=== PATIENT | male | born 1985 | race Caucasian/White ===

== ENCOUNTER 2017-11-16 12:46 | Inpatient (IN) | payer OTHER ==
[2017-11-16 16:29] VITALS: BMI 25.7
--- NOTE | 2017-11-16 18:10 | HP ---
COWS - Scale Resting Pulse: 1= [place] 81-100 Sweatin=Flushed/Facial Moisture Restless Observation: 1= Difficult to Sit Still Pupil Size: 1= Pupils >than Normal Bone or Joint Aches: 1= Mild Discomfort Runny Nose/ Eye Tearin= None GI Upset > 30mins: 0= None Tremor Observation: 2= Slight Tremor Visible Yawning Observation: 2= >3x During Session Anxiety or Irritability: 2=Irritable/Anxious Goose Flesh Skin: 3=Piloerection COWS Score: 15 Admission ROS S - HPI Chief Complaint: withdrawal symptoms Allergies/Adverse Reactions: Allergies Allergy/AdvReac Type Severity Reaction Status Date / Time No Known Allergies Allergy Verified 11/16/17 17:26 History of Present Illness: 32 yo male with hx of marijuana, nicotine, and heroin dependence is here seeking detox. Pmhx: depression denies any other significant health hx. Denies attending any other detox, denies any significant period of sobriety. Denies suicidal / homicidal ideation or suicide attempts. Exam Limitations: No Limitations - Ebola screening Have you traveled outside of the country in the last 21 days: No Have you had contact with anyone from an Ebola affected area: No Have you been sick,other than usual withdrawal symptoms: No Do you have a fever: No - Review of Systems Constitutional: Chills, Weakness EENT: reports: No Symptoms Reported Respiratory: reports: No Symptoms reported Cardiac: reports: No Symptoms Reported GI: reports: No Symptoms Reported, Indigestion : reports: No Symptoms Reported Musculoskeletal: reports: No Symptoms Reported Integumentary: reports: No Symptoms Reported Neuro: reports: No Symptoms reported, Headache Endocrine: reports: Excessive Sweating Hematology: reports: No Symptoms Reported Psychiatric: reports: Orientated x3, Depressed Patient History - Patient Medical History Hx Anemia: No Hx Asthma: No Hx Chronic Obstructive Pulmonary Disease (COPD): No Hx Cancer: No Hx Cardiac Disorders: No Hx Congestive Heart Failure: No Hx Hypertension: No Hx Hypercholesterolemia: No Hx Pacemaker: No HX Cerebrovascular Accident: No Hx Seizures: No Hx Dementia: No Hx Diabetes: No Hx Gastrointestinal Disorders: No Hx Liver Disease: No Hx Genitourinary Disorders: No Hx Sexually Transmitted Disorders: No Hx Renal Disease (ESRD): No Hx Thyroid Disease: No Hx Human Immunodeficiency Virus (HIV): No (last tested 2 months ago ) Hx Hepatitis C: No Hx Depression: No Hx Suicide Attempt: No Hx Bipolar Disorder: No Hx Schizophrenia: No - Patient Surgical History Past Surgical History: No Hx Neurologic Surgery: No Hx Cataract Extraction: No Hx Cardiac Surgery: No Hx Lung Surgery: No Hx Breast Surgery: No Hx Breast Biopsy: No Hx Abdominal Surgery: No Hx Appendectomy: No Hx Cholecystectomy: No Hx Genitourinary Surgery: No Hx Section: No Hx Orthopedic Surgery: No Anesthesia Reaction: No - PPD History Previous Implant?: No Documented Results: Negative w/o proof Implanted On Prior R Admission?: No PPD to be Administered?: Yes - Reproductive History Patient is a Female of Child Bearing Age (11 -55 yrs old): No - Smoking Cessation Smoking history: Current every day smoker Have you smoked in the past 12 months: No Aproximately how many cigarettes per day: 7 Hx Chewing Tobacco Use: No Initiated information on smoking cessation: Yes 'Breaking Loose' booklet given: 11/16/17 - Substance & Tx. History Hx Alcohol Use: No Hx Substance Use: Yes Substance Use Type: Heroin, Marijuana, Opiates Hx Substance Use Treatment: No - Substances Abused Heroin Route: Inhalation Frequency: 3-6 times per week Amount used: 2 bags Age of first use: 29 Date of Last Use: 11/15/17 Family Disease History - Family Disease History Family Disease History: Other: Father (alive and well), Mother (alive and well ) Admission Physical Exam BHS - Vital Signs Vital Signs: Vital Signs - 24 hr 11/16/17 16:17 Temperature 97 F L Pulse Rate 89 Respiratory 18 Rate Blood Pressure 122/82 - Physical General Appearance: Yes: Disheveled, Mild Distress, Irritable, Anxious HEENTM: Yes: Hearing grossly Normal, Normal ENT Inspection, Normocephalic, Normal Voice, Pharynx Normal, Tm's normal Respiratory: Yes: Chest Non-Tender, Normal Breath Sounds, No Respiratory Distress, No Accessory Muscle Use Neck: Yes: No masses,lesions,Nodules, Trachea in good position Breast: Yes: Breast Exam Deferred Cardiology: Yes: Regular Rhythm, Regular Rate, S1, S2 Abdominal: Yes: Normal Bowel Sounds, Non Tender, Flat, Soft Genitourinary: Yes: Within Normal Limits Back: Yes: Normal Inspection Musculoskeletal: Yes: full range of Motion, Gait Steady, Pelvis Stable Extremities: Yes: Normal Capillary Refill, Normal Inspection, Normal Range of Motion, Non-Tender 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: 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 NML intact, Fully Oriented, Alert, Motor Strength 5/5, Normal Response, Depressed Affect Integumentary: Yes: Normal Color Lymphatic: Yes: Within Normal Limits - Diagnostic (1) Opioid dependence with withdrawal Current Visit: Yes Status: Acute (2) Marijuana dependence Current Visit: Yes Status: Chronic (3) Depressed affect Current Visit: Yes Status: Acute (4) Dehydration Current Visit: Yes Status: Acute (5) Headache Current Visit: Yes Status: Acute Qualifiers: Headache type: unspecified Headache chronicity pattern: acute headache (6) Nicotine dependence Current Visit: Yes Status: Chronic Qualifiers: Nicotine product type: cigarettes Cleared for Admission [facility] - Detox or Rehab [facility] Level of Care: Medically Managed Detox Regimen/Protocol: Methadone [facility] Breath Alcohol Content Breath Alcohol Content: 0 Urine Drug Screen - Results Drug Screen Negative: No Urine Drug Screen Results: THC-Marijuana, OPI-Opiates, MET-Methamphetamine, MTD- Methadone
[2017-11-16] MEDS ORDERED: NICOTINE POLACRILEX 2 MG GUM BC PRN (18:18)
[2017-11-16] MEDS ORDERED: MAGNESIUM CITRATE 300 ML BOTTLE PO PRN (18:18)
[2017-11-16] MEDS ORDERED: MAGNESIUM HYDROX 2400MG/30ML ORAL SUSPENSION 30 ML CUP PO PRN (18:18)
[2017-11-16] MEDS ORDERED: P-EPHED 60MG/TRIPROLIDI 2.5MG TABLET PO PRN (18:18)
[2017-11-16] MEDS ORDERED: ACETAMINOPHEN 325 MG TABLET (FP) PO PRN (18:18)
[2017-11-16] MEDS ORDERED: LOPERAMIDE HCL 2 MG CAPSULE PO PRN (18:18)
[2017-11-16] MEDS ORDERED: guaiFENesin/D-METHORPHAN HB 10 ML UNIT-DOSE CUPS PO PRN (18:18)
[2017-11-16] MEDS ORDERED: MENTHOL/PHENOL 1 EACH UD MM PRN (18:18)
[2017-11-16] MEDS ORDERED: IBUPROFEN 400 MG TABLET (FP) PO PRN (18:18)
[2017-11-16] MEDS ORDERED: METHADONE HCL 10 MG TABLET (FOR DETOX USE ONLY) PO ONE ×2 (18:45→23:00)
[2017-11-16] MEDS: diazePAM 5 MG TABLET PO PRN (19:12)
[2017-11-16] MEDS: hydrOXYzine PAMOATE 50 MG CAPSULE (FP) PO PRN (22:14)
[2017-11-16] MEDS: THIAMINE HCL 100 MG TABLET (FP) PO SCH (22:14)
[2017-11-17 00:04] LABS: URINE APPEARANCE CLEAR; URINE BILIRUBIN NEGATIVE (NEGATIVE); URINE BLOOD NEGATIVE (NEGATIVE); URINE COLOR YELLOW; URINE GLUCOSE (UA) NEGATIVE (NEGATIVE); URINE KETONE NEGATIVE (NEGATIVE); URINE LEUK ESTERASE NEGATIVE (NEGATIVE); URINE NITRITE NEGATIVE (NEGATIVE); URINE PROTEIN NEGATIVE (NEGATIVE); URINE UROBILINOGEN NEGATIVE mg/dL (0.2-1.0)
--- NOTE | 2017-11-17 07:38 | CONSULT ---
[facility] Psychiatric Consult - Data Date of interview: 11/17/17 Admission source: [facility] Identifying data: This is 32 years old male with hs tory of psychiatric hospitalization, history of marijuana, nicotine, and heroin dependence, is here seeking for detox. Substance Abuse History: - Smoking Cessation. Smoking history: Current every day smoker. Have you smoked in the past 12 months: No. Aproximately how many cigarettes per day: 7. Hx Chewing Tobacco Use: No. Initiated information on smoking cessation: Yes. 'Breaking Loose' booklet given: 11/16/17. - Substance & Tx. History. Hx Alcohol Use: No. Hx Substance Use: Yes. Substance Use Type : Heroin, Marijuana, Opiates. Hx Substance Use Treatment: No. - Substances Abused. Heroin. Route: Inhalation. Frequency: 3-6 times per week. Amount used: 2 bags. Age of first use: 29. Date of Last Use: 11/15/17 Medical History: patient denies any significant health history. Psychiatric History: Patient reports history of anixiety, reports unclear psychiatric admission on 2-3 years ago being under influence, Denies attending any other detox, denies any significant period of sobriety. Denies suicidal / homicidal ideation or suicide attempts history. Physical/Sexual Abuse/Trauma History: Denies Additional Comment: Observation. Detox Unit Care Protocol Mental Status Exam - Mental Status Exam Alert and Oriented to: Person Cognitive Function: Fair Patient Appearance: Unkempt Mood: Nervous, Anxious Affect: Labile Patient Behavior: Guarded, Agitated Speech Pattern: Appropriate Voice Loudness: Mildly Loud Thought Process: Circumstantial Thought Disorder: Being Controlled Hallucinations: Denies Suicidal Ideation: Denies Homicidal Ideation: Denies Insight/Judgement: Fair Sleep: Difficulty falling asleep Appetite: Weight loss Muscle strength/Tone: Normal Gait/Station: Normal Additional Comments: Observation. Detox Unit Care Protocol Psychiatric Findings - Problem List ([place] 1, 2,3) (1) Drug-induced mood disorder Current Visit: Yes Status: Acute (2) Opioid dependence with withdrawal Current Visit: Yes Status: Acute (3) Marijuana dependence Current Visit: Yes Status: Chronic (4) Nicotine dependence Current Visit: Yes Status: Chronic Qualifiers: Nicotine product type: cigarettes - Initial Treatment Plan Initial Treatment Plan: Observation. Detox Unit Care Protocol
[2017-11-17] MEDS ORDERED: METHADONE HCL 10 MG TABLET (FOR DETOX USE ONLY) PO ONE (10:00)
[2017-11-17 10:03] LABS: HEMATOCRIT 45.6 % (35.4-49); HEMOGLOBIN 15.2 GM/dL (11.7-16.9); MCH 32.2 pg (25.7-33.7); MCHC 33.2 g/dl (32.0-35.9); MEAN PLT VOLUME 9.6 fl (7.5-11.1); PLATELET COUNT 236 K/MM3 (134-434); RBC 4.71 M/mm3 (4.00-5.60); RDW 13.4 % (11.9-15.9); WHITE BLOOD COUNT 6.6 K/mm3 (4.0-10.0)
[2017-11-17] MEDS: PRENATAL VITAMINS W/ FOLIC ACID TABLET (FP) PO SCH (10:12)
[2017-11-17] MEDS: diazePAM 5 MG TABLET PO PRN ×2 (10:12→22:37)
[2017-11-17] MEDS: NICOTINE 14 MG/24 HOURS TOPICAL PATCH TD SCH ×2 (10:13→10:16)
--- NOTE | 2017-11-17 10:14 | PN ---
BHS COWS - Scale Resting Pulse: 1= [place] 81-100 Sweatin=Flushed/Facial Moisture Restless Observation: 1= Difficult to Sit Still Pupil Size: 0= Normal to Room Light Bone or Joint Aches: 1= Mild Discomfort Runny Nose/ Eye Tearin= Runny Nose/Eyes GI Upset > 30mins: 0= None Tremor Observation of Outstretched Hands: 2= Slight Tremor Visible Yawning Observation: 2= >3x During Session Anxiety or Irritability: 2=Irritable/Anxious Goose Flesh Skin: 0=Smooth Skin COWS Score: 13 BHS Progress Note (SOAP) Subjective: agitation sweats irritable body aches Objective: 11/17/17 10:14 Vital Signs Temperature 98.1 F 11/17/17 09:54 Pulse Rate 100 H 11/17/17 09:54 Respiratory Rate 20 11/17/17 09:54 Blood Pressure 124/80 11/17/17 09:54 O2 Sat by Pulse Oximetry (%) Laboratory Tests 11/16/17 11/17/17 23:50 06:00 WBC 6.6 RBC 4.71 Hgb 15.2 Hct 45.6 MCV 97.0 H MCH 32.2 MCHC 33.2 RDW 13.4 Plt Count 236 MPV 9.6 Urine Color Yellow Urine Appearance Clear Urine pH 5.0 Ur Specific [place] 1.029 Urine Protein Negative Urine Glucose (UA) Negative Urine Ketones Negative Urine Blood Negative Urine Nitrite Negative Urine Bilirubin Negative Urine Urobilinogen Negative Ur Leukocyte Esterase Negative labs pending aaox3 ambulating no acute distress Assessment: 11/17/17 10:14 withdrawal sx Plan: continue detox increase fluids labs pending
[2017-11-17 10:17] LABS: CHLORIDE 103 mmol/L (98-107); POTASSIUM 4.5 mmol/L (3.5-5.1); SODIUM 138 mmol/L (136-145)
[2017-11-17 10:31] LABS: ALBUMIN 3.9 g/dl (3.4-5.0); ALK PHOS 91 U/L (45-117); ANION GAP 6 (8-16); BILIRUBIN,TOTAL 0.6 mg/dL (0.2-1.0); BLOOD UREA NITROGEN 17 mg/dL (7-18); CALCIUM 8.3 mg/dL (8.5-10.1); CO2 29 mmol/L (21-32); CREATININE 1.2 mg/dL (0.7-1.3); GLUCOSE,RANDOM 95 mg/dL (74-106); SGOT/AST 16 U/L (15-37); SGPT/ALT 42 U/L (12-78); TOT PROT 6.8 g/dl (6.4-8.2)
[2017-11-17] MEDS ORDERED: PNEUMOCOCCAL 23 VACCINE 0.5 ML VIAL IM ONE (12:00)
[2017-11-17] MEDS ORDERED: FLU VACCINE QUAD 60 MCG/0.5 ML (MDV 17-18) IM ONE (12:00)
[2017-11-17] MEDS ORDERED: PNEUMOC 13-VAL CONJ-DIP CRM/PF 0.5 ML DISP.SYRIN IM ONE (12:00)
--- NOTE | 2017-11-17 16:13 | EKG ---
Test Reason : Blood Pressure : / mmHG Vent. Rate : 062 BPM Atrial Rate : 062 BPM P-R Int : 138 ms QRS Dur : 084 ms QT Int : 380 ms P-R-T Axes : 054 050 033 degrees QTc Int : 385 ms NORMAL SINUS RHYTHM NORMAL ECG NO PREVIOUS ECGS AVAILABLE Confirmed by JULIÁN RIDDLE MD ([id number]) on 11/17/2017 4:12:32 PM Referred By: Confirmed By:JULIÁN RIDDLE MD
[2017-11-17] MEDS: THIAMINE HCL 100 MG TABLET (FP) PO SCH (22:37)
[2017-11-18] MEDS ORDERED: METHADONE HCL 5 MG TABLET (FOR DETOX USE ONLY) PO ONE (10:00)
[2017-11-18] MEDS: diazePAM 5 MG TABLET PO PRN ×3 (10:04→22:17)
[2017-11-18] MEDS: PRENATAL VITAMINS W/ FOLIC ACID TABLET (FP) PO SCH (10:04)
[2017-11-18] MEDS: NICOTINE 14 MG/24 HOURS TOPICAL PATCH TD SCH (10:04)
--- NOTE | 2017-11-18 10:14 | PN ---
BHS COWS - Scale Resting Pulse: 0= [place] 80 or Below Sweatin=Flushed/Facial Moisture Restless Observation: 1= Difficult to Sit Still Pupil Size: 0= Normal to Room Light Bone or Joint Aches: 2= Severe Diffuse Aches Runny Nose/ Eye Tearin= Nasal Congestion GI Upset > 30mins: 0= None Tremor Observation of Outstretched Hands: 1= Tremor [place], Not Seen Yawning Observation: 2= >3x During Session Anxiety or Irritability: 1=Feels Anxious/Irritable Goose Flesh Skin: 0=Smooth Skin COWS Score: 10 BHS Progress Note (SOAP) Subjective: feeling better sweats irritable Objective: 11/18/17 10:16 Vital Signs Temperature 97.9 F 11/18/17 06:55 Pulse Rate 64 11/18/17 06:55 Respiratory Rate 18 11/18/17 06:55 Blood Pressure 111/71 11/18/17 06:55 O2 Sat by Pulse Oximetry (%) Laboratory Tests 11/16/17 11/16/17 11/17/17 06:00 23:50 06:00 WBC RBC Hgb Hct MCV MCH MCHC RDW Plt Count MPV Sodium Potassium Chloride Carbon Dioxide Anion Gap BUN Creatinine Creat Clearance w eGFR Random Glucose Calcium Total Bilirubin AST ALT Alkaline Phosphatase Total Protein Albumin Urine Color Yellow Urine Appearance Clear Urine pH 5.0 Ur Specific [place] 1.029 Urine Protein Negative Urine Glucose (UA) Negative Urine Ketones Negative Urine Blood Negative Urine Nitrite Negative Urine Bilirubin Negative Urine Urobilinogen Negative Ur Leukocyte Esterase Negative RPR Titer Hepatitis C Antibody <0.1 HIV 1&2 Antibody Screen Negative HIV P24 Antigen Negative 11/17/17 11/17/17 11/17/17 06:00 06:00 06:00 WBC 6.6 RBC 4.71 Hgb 15.2 Hct 45.6 MCV 97.0 H MCH 32.2 MCHC 33.2 RDW 13.4 Plt Count 236 MPV 9.6 Sodium 138 Potassium 4.5 Chloride 103 Carbon Dioxide 29 Anion Gap 6 L BUN 17 Creatinine 1.2 Creat Clearance w eGFR > 60 Random Glucose 95 Calcium 8.3 L Total Bilirubin 0.6 AST 16 ALT 42 Alkaline Phosphatase 91 Total Protein 6.8 Albumin 3.9 Urine Color Urine Appearance Urine pH Ur Specific [place] Urine Protein Urine Glucose (UA) Urine Ketones Urine Blood Urine Nitrite Urine Bilirubin Urine Urobilinogen Ur Leukocyte Esterase RPR Titer Nonreactive Hepatitis C Antibody HIV 1&2 Antibody Screen HIV P24 Antigen aaox3 ambulating no acute distress Assessment: 11/18/17 10:16 withdrawal sx Plan: continue detox increase fluids
[2017-11-18] MEDS: hydrOXYzine PAMOATE 50 MG CAPSULE (FP) PO PRN (22:17)
[2017-11-18] MEDS: THIAMINE HCL 100 MG TABLET (FP) PO SCH (22:17)
[2017-11-19] MEDS ORDERED: METHADONE HCL 5 MG TABLET (FOR DETOX USE ONLY) PO ONE (10:00)
[2017-11-19] MEDS: PRENATAL VITAMINS W/ FOLIC ACID TABLET (FP) PO SCH (10:17)
[2017-11-19] MEDS: NICOTINE 14 MG/24 HOURS TOPICAL PATCH TD SCH (10:18)
[2017-11-19] MEDS: diazePAM 5 MG TABLET PO PRN ×2 (10:18→17:32)
[2017-11-19] MEDS: MAG HYDROX/AL HYDROX/SIMETH 30 ML UNIT-DOSE CUP PO PRN ×2 (14:42→22:28)
--- NOTE | 2017-11-19 21:11 | PN ---
BHS Progress Note (SOAP) Subjective: sleep less shakes sweats Objective: 11/19/17 21:10 A & O x 3 Vital Signs Temperature 97.3 F L 11/19/17 18:15 Pulse Rate 74 11/19/17 18:15 Respiratory Rate 18 11/19/17 18:15 Blood Pressure 120/74 11/19/17 18:15 O2 Sat by Pulse Oximetry (%) Assessment: 11/19/17 21:10 withdrawal sx Plan: continue detox
[2017-11-19] MEDS: THIAMINE HCL 100 MG TABLET (FP) PO SCH (22:20)
[2017-11-19] MEDS: hydrOXYzine PAMOATE 50 MG CAPSULE (FP) PO PRN (22:20)
[2017-11-20] MEDS ORDERED: METHADONE HCL 10 MG TABLET (FOR DETOX USE ONLY) PO ONE (10:00)
[2017-11-20] MEDS: PRENATAL VITAMINS W/ FOLIC ACID TABLET (FP) PO SCH (10:06)
[2017-11-20] MEDS: NICOTINE 14 MG/24 HOURS TOPICAL PATCH TD SCH (10:07)
[2017-11-20] MEDS: MAG HYDROX/AL HYDROX/SIMETH 30 ML UNIT-DOSE CUP PO PRN (10:07)
--- NOTE | 2017-11-20 14:20 | PN ---
S Progress Note (SOAP) Subjective: alert oriented x 3 tolerate food and fluid well Objective: 11/20/17 14:18 Vital Signs Temperature 96.4 F L 11/20/17 14:16 Pulse Rate 93 H 11/20/17 14:16 Respiratory Rate 18 11/20/17 14:16 Blood Pressure 129/70 11/20/17 14:16 O2 Sat by Pulse Oximetry (%) Laboratory Last Values WBC 6.6 K/mm3 (4.0-10.0) 11/17/17 06:00 RBC 4.71 M/mm3 (4.00-5.60) 11/17/17 06:00 Hgb 15.2 GM/dL (11.7-16.9) 11/17/17 06:00 Hct 45.6 % (35.4-49) 11/17/17 06:00 MCV 97.0 fl (80-96) H 11/17/17 06:00 MCH 32.2 pg (25.7-33.7) 11/17/17 06:00 MCHC 33.2 g/dl (32.0-35.9) 11/17/17 06:00 RDW 13.4 % (11.9-15.9) 11/17/17 06:00 Plt Count 236 K/MM3 (134-434) 11/17/17 06:00 MPV 9.6 fl (7.5-11.1) 11/17/17 06:00 Sodium 138 mmol/L (136-145) 11/17/17 06:00 Potassium 4.5 mmol/L (3.5-5.1) 11/17/17 06:00 Chloride 103 mmol/L (98-107) 11/17/17 06:00 Carbon Dioxide 29 mmol/L (21-32) 11/17/17 06:00 Anion Gap 6 (8-16) L 11/17/17 06:00 BUN 17 mg/dL (7-18) 11/17/17 06:00 Creatinine 1.2 mg/dL (0.7-1.3) 11/17/17 06:00 Creat Clearance w eGFR > 60 (>60) 11/17/17 06:00 Random Glucose 95 mg/dL (74-106) 11/17/17 06:00 Calcium 8.3 mg/dL (8.5-10.1) L 11/17/17 06:00 Total Bilirubin 0.6 mg/dL (0.2-1.0) 11/17/17 06:00 AST 16 U/L (15-37) 11/17/17 06:00 ALT 42 U/L (12-78) 11/17/17 06:00 Alkaline Phosphatase 91 U/L (45-117) 11/17/17 06:00 Total Protein 6.8 g/dl (6.4-8.2) 11/17/17 06:00 Albumin 3.9 g/dl (3.4-5.0) 11/17/17 06:00 Urine Color Yellow 11/16/17 23:50 Urine Appearance Clear 11/16/17 23:50 Urine pH 5.0 (5.0-8.0) 11/16/17 23:50 Ur Specific [place] 1.029 (1.001-1.035) 11/16/17 23:50 Urine Protein Negative (NEGATIVE) 11/16/17 23:50 Urine Glucose (UA) Negative (NEGATIVE) 11/16/17 23:50 Urine Ketones Negative (NEGATIVE) 11/16/17 23:50 Urine Blood Negative (NEGATIVE) 11/16/17 23:50 Urine Nitrite Negative (NEGATIVE) 11/16/17 23:50 Urine Bilirubin Negative (NEGATIVE) 11/16/17 23:50 Urine Urobilinogen Negative mg/dL (0.2-1.0) 11/16/17 23:50 Ur Leukocyte Esterase Negative (NEGATIVE) 11/16/17 23:50 RPR Titer Nonreactive (NONREACTIVE) 11/17/17 06:00 Hepatitis C Antibody <0.1 s/co ratio (0.0-0.9) 11/16/17 06:00 HIV 1&2 Antibody Screen Negative 11/17/17 06:00 HIV P24 Antigen Negative 11/17/17 06:00 lab noted Assessment: 11/20/17 14:18 mild withdrawal sx Plan: medically supervised detox
[2017-11-20] MEDS: THIAMINE HCL 100 MG TABLET (FP) PO SCH (22:05)
[2017-11-20] MEDS: hydrOXYzine PAMOATE 50 MG CAPSULE (FP) PO PRN (22:06)
[2017-11-21] MEDS ORDERED: METHADONE HCL 5 MG TABLET (FOR DETOX USE ONLY) PO ONE (06:00)
[2017-11-21 07:17] VITALS: BP 107/75; PULSE 69; TEMP 96.4
--- NOTE | 2017-11-21 08:52 | DS ---
[facility] Detox Discharge Summary Admission Date: 11/16/17 Discharge Date: 11/21/17 - History Present History: Opioid Dependence - Physical Exam Results Vital Signs: Vital Signs Temperature 96.4 F L 11/21/17 06:17 Pulse Rate 69 11/21/17 06:17 Respiratory Rate 16 11/21/17 06:17 Blood Pressure 107/75 11/21/17 06:17 O2 Sat by Pulse Oximetry (%) Pertinent Admission Physical Exam Findings: withdrawal sx Laboratory Last Values WBC 6.6 K/mm3 (4.0-10.0) 11/17/17 06:00 RBC 4.71 M/mm3 (4.00-5.60) 11/17/17 06:00 Hgb 15.2 GM/dL (11.7-16.9) 11/17/17 06:00 Hct 45.6 % (35.4-49) 11/17/17 06:00 MCV 97.0 fl (80-96) H 11/17/17 06:00 MCH 32.2 pg (25.7-33.7) 11/17/17 06:00 MCHC 33.2 g/dl (32.0-35.9) 11/17/17 06:00 RDW 13.4 % (11.9-15.9) 11/17/17 06:00 Plt Count 236 K/MM3 (134-434) 11/17/17 06:00 MPV 9.6 fl (7.5-11.1) 11/17/17 06:00 Sodium 138 mmol/L (136-145) 11/17/17 06:00 Potassium 4.5 mmol/L (3.5-5.1) 11/17/17 06:00 Chloride 103 mmol/L (98-107) 11/17/17 06:00 Carbon Dioxide 29 mmol/L (21-32) 11/17/17 06:00 Anion Gap 6 (8-16) L 11/17/17 06:00 BUN 17 mg/dL (7-18) 11/17/17 06:00 Creatinine 1.2 mg/dL (0.7-1.3) 11/17/17 06:00 Creat Clearance w eGFR > 60 (>60) 11/17/17 06:00 Random Glucose 95 mg/dL (74-106) 11/17/17 06:00 Calcium 8.3 mg/dL (8.5-10.1) L 11/17/17 06:00 Total Bilirubin 0.6 mg/dL (0.2-1.0) 11/17/17 06:00 AST 16 U/L (15-37) 11/17/17 06:00 ALT 42 U/L (12-78) 11/17/17 06:00 Alkaline Phosphatase 91 U/L (45-117) 11/17/17 06:00 Total Protein 6.8 g/dl (6.4-8.2) 11/17/17 06:00 Albumin 3.9 g/dl (3.4-5.0) 11/17/17 06:00 Urine Color Yellow 11/16/17 23:50 Urine Appearance Clear 11/16/17 23:50 Urine pH 5.0 (5.0-8.0) 11/16/17 23:50 Ur Specific [place] 1.029 (1.001-1.035) 11/16/17 23:50 Urine Protein Negative (NEGATIVE) 11/16/17 23:50 Urine Glucose (UA) Negative (NEGATIVE) 11/16/17 23:50 Urine Ketones Negative (NEGATIVE) 11/16/17 23:50 Urine Blood Negative (NEGATIVE) 11/16/17 23:50 Urine Nitrite Negative (NEGATIVE) 11/16/17 23:50 Urine Bilirubin Negative (NEGATIVE) 11/16/17 23:50 Urine Urobilinogen Negative mg/dL (0.2-1.0) 11/16/17 23:50 Ur Leukocyte Esterase Negative (NEGATIVE) 11/16/17 23:50 RPR Titer Nonreactive (NONREACTIVE) 11/17/17 06:00 Hepatitis C Antibody <0.1 s/co ratio (0.0-0.9) 11/16/17 06:00 HIV 1&2 Antibody Screen Negative 11/17/17 06:00 HIV P24 Antigen Negative 11/17/17 06:00 lab noted - Treatment Hospital Course: Detox Protocol Followed, Detoxed Safely, Responded well, Discharged Condition Good, Rehab Referral Accepted Patient has Accepted a Rehab Referral to: [facility] - Medication Discharge Medications: Ambulatory Orders NK [No Known Home Medication] 11/16/17 - Diagnosis (1) Anxiety with depression Current Visit: Yes Status: Suspected (2) Opioid dependence with withdrawal Current Visit: Yes Status: Acute - AMA Did Patient Leave Against Medical Advice: No
[2017-11-21] MEDS: NICOTINE 14 MG/24 HOURS TOPICAL PATCH TD SCH (09:46)
[2017-11-21] MEDS: PRENATAL VITAMINS W/ FOLIC ACID TABLET (FP) PO SCH (09:46)
== END 2017-11-21 09:51 | disposition home or self-care (01) | DRG 773 ==
LOC: YASAS 12:46 → Y6N 18:18
PROVIDERS: ADMIT Internal Medicine; ATTEND Internal Medicine
PROC: HZ2ZZZZ Detoxification Services for Substance Abuse Treatment (ICD-10-PCS; principal; 2017-11-16)
DX: F11.23 Opioid dependence with withdrawal (principal); F12.20 Cannabis dependence, uncomplicated; F17.210 Nicotine dependence, cigarettes, uncomplicated; F19.24 Other psychoactive substance dependence with psychoactive substance-induced mood disorder; F41.8 Other specified anxiety disorders; R51 Headache
CPT/HCPCS: 36415; 80053; 81003; 85027; 86593; 86803; 87389; 90688; 90732; 93005; 93010; G0008; G0009

== ENCOUNTER 2024-09-11 17:26 | Inpatient (IN) | payer OTHER ==
[2024-09-11 18:19] VITALS: BMI 23.6
[2024-09-11] MEDS ORDERED: DOCUSATE SODIUM 100 MG CAPSULE (FP) PO PRN (18:52)
[2024-09-11] MEDS ORDERED: LOPERAMIDE HCL 2 MG CAPSULE PO PRN (18:52)
[2024-09-11] MEDS ORDERED: MAGNESIUM HYDROX 2400MG/30ML ORAL SUSPENSION 30 ML CUP PO PRN (18:52)
[2024-09-11] MEDS ORDERED: guaiFENesin 600 MG TABLET.ER (FP) PO PRN (18:52)
[2024-09-11] MEDS ORDERED: MAG HYDROX/AL HYDROX/SIMETH 30 ML UNIT-DOSE CUP PO PRN (18:52)
[2024-09-11] MEDS ORDERED: IBUPROFEN 400 MG TABLET (FP) PO PRN (18:52)
[2024-09-11] MEDS ORDERED: BENZONATATE 200 MG CAPSULE PO PRN (18:52)
[2024-09-11] MEDS ORDERED: NICOTINE POLACRILEX 2 MG LOZENGE BC PRN (18:52)
[2024-09-11] MEDS ORDERED: NICOTINE POLACRILEX 2 MG GUM BUC PRN (18:52)
[2024-09-11] MEDS ORDERED: BENZOCAINE/MENTHOL (CHLORASEPTIC ) LOZENGE MM PRN (18:52)
[2024-09-11] MEDS ORDERED: POLYETHYLENE GLYCOL (HEALTHYLAX) 3350 17 GM PACKET PO PRN (18:52)
[2024-09-11] MEDS ORDERED: NALOXONE (NARCAN) HCL 4 MG/0.1 ML SPRAY NS PRN (18:52)
[2024-09-11] MEDS ORDERED: ACETAMINOPHEN 325 MG TABLET (FP) PO PRN (18:52)
[2024-09-11] MEDS ORDERED: BUPRENORPHINE/NALOXONE 4 MG/1 MG FILM PACKET ONE (21:24)
[2024-09-11] MEDS: BUPRENORPHINE/NALOXONE 8 MG/2 MG FILM PACKET SL SCH (21:40)
[2024-09-11] MEDS: THIAMINE 100 MG TABLET PO SCH (22:45)
[2024-09-11] MEDS: MELATONIN 5 MG TABLETS PO SCH (22:45)
[2024-09-12] MEDS: PRENATAL VITAMINS W/ FOLIC ACID TABLET (FP) PO SCH (10:06)
[2024-09-12 11:11] LABS: HEMOGLOBIN 14.2 GM/dL (11.7-16.9); MCH 31.1 pg (25.7-33.7); MCHC 33.1 g/dl (32.0-35.9); MEAN CELL VOLUME 93.9 fl (80-96); MEAN PLT VOLUME 9.6 fl (7.5-11.1); PLATELET COUNT 241 10^3/uL (134-434); RBC 4.58 M/mm3 (4.00-5.60); RDW 13.7 % (11.9-15.9)
[2024-09-12 12:04] LABS: ALBUMIN 3.8 g/dl (3.4-5.0)
[2024-09-12 12:05] LABS: CALCIUM 8.9 mg/dL (8.5-10.1)
[2024-09-12 12:06] LABS: BLOOD UREA NITROGEN 17.1 mg/dL (7-18)
[2024-09-12 12:09] LABS: CREATININE 0.8 mg/dL (0.55-1.3)
[2024-09-12 12:11] LABS: TOT PROT 6.5 g/dl (6.4-8.2)
[2024-09-12 12:12] LABS: BILIRUBIN,TOTAL 0.6 mg/dL (0.2-1)
[2024-09-12 14:10] LABS: HIV INTERPRETATION NEGATIVE (NEGATIVE)
[2024-09-12] MEDS: hydrOXYzine PAMOATE 25 MG CAPSULE (FP) PO PRN (14:14)
[2024-09-12] MEDS: IBUPROFEN 600 MG TABLET (FP) PO PRN (16:39)
[2024-09-13 11:04] LABS: URINE APPEARANCE CLEAR; URINE BILIRUBIN NEGATIVE (NEGATIVE); URINE COLOR YELLOW; URINE GLUCOSE (UA) NEGATIVE (NEGATIVE); URINE KETONE NEGATIVE (NEGATIVE); URINE LEUK ESTERASE NEGATIVE (NEGATIVE); URINE NITRITE NEGATIVE (NEGATIVE); URINE PROTEIN NEGATIVE (NEGATIVE); URINE UROBILINOGEN 0.2 mg/dL (0.2-1.0)
[2024-09-14 17:58] VITALS: BP 117/75; PULSE 96; RESP 15; TEMP 98.6
[2024-09-14] MEDS: NALOXONE (NYS OPIOID OVERDOSE PROGRAM) 4 MG/0.1 ML SPRAY NS SCH (20:56)
[2024-09-14] MEDS ORDERED: busPIRone HCL 10 MG TABLET (FP) PO SCH (22:00)
[2024-09-14] MEDS ORDERED: QUEtiapine FUMARATE 50 MG TABLET PO SCH (22:00)
[2024-09-15] MEDS ORDERED: SERTRALINE HCL 50 MG TABLET (FP) PO SCH (10:00)
== END 2024-09-14 18:31 | disposition left against medical advice (07) | DRG 770 ==
LOC: YASAS 17:26 → Y3NR 21:15 → Y3W 09-12 13:28
PROVIDERS: ADMIT Psychiatry & Neurology Pain Medicine; ATTEND Psychiatry & Neurology Pain Medicine
PROC: HZ42ZZZ Group Counseling for Substance Abuse Treatment, Cognitive-Behavioral (ICD-10-PCS; principal; 2024-09-11)
DX: F11.20 Opioid dependence, uncomplicated (principal); F17.210 Nicotine dependence, cigarettes, uncomplicated; F19.24 Other psychoactive substance dependence with psychoactive substance-induced mood disorder; F32.A Depression, unspecified; Z59.00 Homelessness unspecified
CPT/HCPCS: 36415; 80053; 81003; 85027; 86780; 87389; 93005; 93010

== ENCOUNTER 2024-10-26 11:37 | Inpatient (IN) | payer OTHER ==
[2024-10-26 11:55] VITALS: BMI 22.1
[2024-10-26] MEDS ORDERED: cloNIDine HCL 0.1 MG TABLET PO PRN (12:28)
[2024-10-26] MEDS ORDERED: BENZOCAINE/MENTHOL (CHLORASEPTIC ) LOZENGE MM PRN (12:32)
[2024-10-26] MEDS ORDERED: POLYETHYLENE GLYCOL (HEALTHYLAX) 3350 17 GM PACKET PO PRN (12:32)
[2024-10-26] MEDS ORDERED: guaiFENesin 600 MG TABLET.ER (FP) PO PRN (12:32)
[2024-10-26] MEDS ORDERED: BISMUTH SUBSALICYLATE 262 MG/15 ML BTL PO PRN (12:32)
[2024-10-26] MEDS ORDERED: LOPERAMIDE HCL 2 MG CAPSULE PO PRN (12:32)
[2024-10-26] MEDS ORDERED: NALOXONE (NARCAN) HCL 4 MG/0.1 ML SPRAY NS PRN (12:32)
[2024-10-26] MEDS ORDERED: ONDANSETRON *ODT* 4 MG TABLET SL PRN (12:32)
[2024-10-26] MEDS ORDERED: NICOTINE POLACRILEX 2 MG GUM BUC PRN (12:32)
[2024-10-26] MEDS ORDERED: NICOTINE POLACRILEX 2 MG LOZENGE BC PRN (12:32)
[2024-10-26] MEDS ORDERED: ACETAMINOPHEN 325 MG TABLET (FP) PO PRN (12:32)
[2024-10-26] MEDS ORDERED: DICYCLOMINE HCL 10 MG CAPSULE PO PRN (12:32)
[2024-10-26] MEDS ORDERED: MAGNESIUM HYDROX 2400MG/30ML ORAL SUSPENSION 30 ML CUP PO PRN (12:32)
[2024-10-26] MEDS ORDERED: IBUPROFEN 400 MG TABLET (FP) PO PRN (12:32)
[2024-10-26] MEDS ORDERED: BENZONATATE 200 MG CAPSULE PO PRN (12:32)
[2024-10-26] MEDS ORDERED: IBUPROFEN 600 MG TABLET (FP) PO ONE (13:39)
[2024-10-26] MEDS: IBUPROFEN 600 MG TABLET (FP) PO PRN (13:44)
[2024-10-26] MEDS: methaDONE HCL 10 MG TABLET PO ONE (14:01)
[2024-10-26] MEDS: MELATONIN 5 MG TABLETS PO SCH (22:52)
[2024-10-26] MEDS: THIAMINE 100 MG TABLET PO SCH (22:52)
[2024-10-27 09:14] LABS: POTASSIUM 3.9 mmol/L (3.5-5.1)
[2024-10-27 09:17] LABS: ALBUMIN 3.7 g/dl (3.4-5.0); BLOOD UREA NITROGEN 15.4 mg/dL (7-18); CALCIUM 9.1 mg/dL (8.5-10.1)
[2024-10-27 09:20] LABS: CREATININE 0.8 mg/dL (0.55-1.3)
[2024-10-27 09:22] LABS: BILIRUBIN,TOTAL 0.4 mg/dL (0.2-1); TOT PROT 6.8 g/dl (6.4-8.2)
[2024-10-27 09:27] LABS: HEMATOCRIT 41.3 % (35.4-49); HEMOGLOBIN 14.2 GM/dL (11.7-16.9); MCH 32.2 pg (25.7-33.7); MCHC 34.5 g/dl (32.0-35.9); MEAN CELL VOLUME 93.4 fl (80-96); MEAN PLT VOLUME 9.4 fl (7.5-11.1); PLATELET COUNT 278 10^3/uL (134-434); RBC 4.42 M/mm3 (4.00-5.60); RDW 14.2 % (11.9-15.9)
[2024-10-27] MEDS ORDERED: methaDONE HCL 40 MG DISPERSABLE TABLET PO ONE (10:00)
[2024-10-27] MEDS: PRENATAL VITAMINS W/ FOLIC ACID TABLET (FP) PO SCH (10:26)
[2024-10-27] MEDS: FLU VACCINE (FLULAVAL) PF 45 MCG/0.5 ML SYRINGE 2024-2025 IM ONE (11:30)
[2024-10-27] MEDS: diazePAM 5 MG TABLET PO PRN (18:05)
[2024-10-27] MEDS: QUEtiapine FUMARATE 50 MG TABLET PO PRN (21:53)
[2024-10-28] MEDS: methaDONE HCL 40 MG DISPERSABLE TABLET PO ONE (09:21)
[2024-10-29] MEDS ORDERED: methaDONE HCL 40 MG DISPERSABLE TABLET PO ONE (10:00)
[2024-10-29] MEDS: MAG HYDROX/AL HYDROX/SIMETH 30 ML UNIT-DOSE CUP PO PRN (11:59)
[2024-10-29] MEDS: METHOCARBAMOL 500 MG TABLET PO PRN (22:02)
[2024-10-30 06:09] VITALS: RESP 18
[2024-10-30 09:25] VITALS: BP 104/72; PULSE 90; TEMP 98.9
[2024-10-30] MEDS ORDERED: methaDONE 40 MG, methaDONE 10 MG PO ONE (10:00)
[2024-10-30] MEDS ORDERED: methaDONE HCL 40 MG DISPERSABLE TABLET PO ONE (10:00)
[2024-10-30] MEDS: methaDONE 40 MG, methaDONE 10 MG PO ONE (10:37)
== END 2024-10-30 09:55 | disposition home or self-care (01) | DRG 773 ==
LOC: YASAS 11:37 → Y6N 13:05
PROVIDERS: ADMIT Allergy & Immunology; ATTEND Allergy & Immunology
PROC: HZ2ZZZZ Detoxification Services for Substance Abuse Treatment (ICD-10-PCS; principal; 2024-10-26)
DX: F11.23 Opioid dependence with withdrawal (principal); F16.20 Hallucinogen dependence, uncomplicated; F15.10 Other stimulant abuse, uncomplicated; F12.20 Cannabis dependence, uncomplicated; F17.210 Nicotine dependence, cigarettes, uncomplicated; F19.24 Other psychoactive substance dependence with psychoactive substance-induced mood disorder; R63.4 Abnormal weight loss; Z68.22 Body mass index [BMI] 22.0-22.9, adult; Z59.00 Homelessness unspecified
CPT/HCPCS: 36415; 80053; 80305; 80307; 85027; 90656; 93005; 93010; G0008